=== PATIENT | male | born 1970 | race Two or more races ===

== ENCOUNTER 2017-01-13 05:33 | Day surgery (SDC) | payer BC ==
[~2017-01-13] VITALS: Ht 185.4 cm; Wt 89.8 kg
[~2017-01-13 05:33] MED LIST: LOVASTATIN20 MG PO; MULTIPLE VITAM1 EACH PO
[2017-01-13 05:57] VITALS: BP 149/84
[2017-01-13] MEDS ORDERED: PERCOCET 5/31 TABLET PO (08:57)
[2017-01-13] MEDS ORDERED: COLACE100 MG PO (08:57)
[2017-01-13 09:40] VITALS: BP 124/67
[2017-01-13 10:24] VITALS: BP 119/76
== END 2017-01-13 10:31 | disposition home or self-care (01) ==
LOC: SDC 05:33
PROC: 0JBF0ZZ Excision of Left Upper Arm Subcutaneous Tissue and Fascia, Open Approach (ICD-10-PCS; principal; 2017-01-13)
PROC: 0JBD0ZZ Excision of Right Upper Arm Subcutaneous Tissue and Fascia, Open Approach (ICD-10-PCS; principal; 2017-01-13)
PROC: 0JBG0ZZ Excision of Right Lower Arm Subcutaneous Tissue and Fascia, Open Approach (ICD-10-PCS; principal; 2017-01-13)
PROC: 0JBH0ZZ Excision of Left Lower Arm Subcutaneous Tissue and Fascia, Open Approach (ICD-10-PCS; principal; 2017-01-13)
DX: D17.21 Benign lipomatous neoplasm of skin and subcutaneous tissue of right arm (principal); D17.22 Benign lipomatous neoplasm of skin and subcutaneous tissue of left arm; Z83.3 Family history of diabetes mellitus; Z84.1 Family history of disorders of kidney and ureter
CPT/HCPCS: 88304; J0690; J1885; J2250; J2405; J3010